=== PATIENT | male | born 1975 | race Caucasian/White ===

== ENCOUNTER → 2017-07-01 10:43 | Outpatient (CLI) | payer OTHER, SELFPAY ==
[2017-07-01 12:32] LABS: Uric Acid 7.4 mg/dL (3.5-7.2)
== END ==
PROVIDERS: Family Provider Family Medicine; PCP Family Medicine; Visit Provider Family Medicine
DX: M00.9 Pyogenic arthritis, unspecified (principal)
CPT/HCPCS: 36415; 84550

== ENCOUNTER → 2017-11-05 13:34 | Outpatient (CLI) | payer OTHER, SELFPAY ==
[2017-11-05 15:44] LABS: Uric Acid 5.3 mg/dL (3.5-7.2)
== END ==
PROVIDERS: Family Provider Family Medicine; PCP Family Medicine; Visit Provider Family Medicine
DX: M1A.0710 Idiopathic chronic gout, right ankle and foot, without tophus (tophi) (principal)
CPT/HCPCS: 36415; 84550

== ENCOUNTER → 2019-12-21 10:42 | Outpatient (CLI) | payer OTHER, SELFPAY ==
[2019-12-21 13:27] LABS: Anion Gap 6 (5-15); BUN 13 mg/dL (7-18); Chloride 103 mmol/L (98-107); Cholesterol 201 mg/dL (200); EST Glomerular Filtration Rate 87 mL/min (>60); Est Glom Filt Rate - Afr Amer 106 mL/min (>60); Glucose 85 mg/dL (74-106); High Density Lipoprotein 31 mg/dL; Potassium 4.2 mmol/L (3.5-5.1); Sodium Level 138 mmol/L (136-145); Triglycerides 463 mg/dL; Uric Acid 5.8 mg/dL (3.5-7.2)
== END ==
PROVIDERS: PCP Family Medicine; Referring Provider Family Medicine; Visit Provider Family Medicine
DX: M1A.0710 Idiopathic chronic gout, right ankle and foot, without tophus (tophi) (principal); Z13.1 Encounter for screening for diabetes mellitus; Z13.220 Encounter for screening for lipoid disorders
CPT/HCPCS: 36415; 80048; 80061; 84550

== ENCOUNTER → 2020-12-20 09:42 | Outpatient (CLI) | payer OTHER, SELFPAY ==
[2020-12-20 12:04] LABS: Anion Gap 5 (5-15); BUN 14 mg/dL (7-18); BUN/Creat Ratio 13.7 RATIO (10-20); Calcium,Total 8.8 mg/dL (8.5-10.1); Chloride 108 mmol/L (98-107); Cholesterol 190 mg/dL (200); Creatinine, Serum 1.02 mg/dL (0.70-1.30); EST Glomerular Filtration Rate 85 mL/min (>60); Est Glom Filt Rate - Afr Amer 103 mL/min (>60); Glucose 91 mg/dL (74-106); High Density Lipoprotein 33 mg/dL; Potassium 4.1 mmol/L (3.5-5.1); Sodium Level 140 mmol/L (136-145); Thyroid Stim Hormone (TSH) 3.97 uIU/mL (0.358-3.74); Triglycerides 256 mg/dL; Uric Acid 6.7 mg/dL (3.5-7.2); Very Low Density Lipoprotein 51 mg/dL (5-40)
[2020-12-22 10:03] LABS: T4 Free Direct 0.81 ng/dL (0.76-1.46)
== END ==
PROVIDERS: PCP Family Medicine; Referring Provider Family Medicine; Visit Provider Family Medicine
DX: E78.5 Hyperlipidemia, unspecified (principal); Z13.1 Encounter for screening for diabetes mellitus; M1A.0710 Idiopathic chronic gout, right ankle and foot, without tophus (tophi)
CPT/HCPCS: 36415; 80048; 80061; 84439; 84443; 84550

== ENCOUNTER → 2021-12-25 | Outpatient (CLI) | payer OTHER, SELFPAY ==
[2021-12-25 12:30] LABS: Anion Gap 6 (5-15); BUN 12 mg/dL (7-18); BUN/Creat Ratio 11.4 RATIO (10-20); Calcium,Total 9.2 mg/dL (8.5-10.1); Chloride 106 mmol/L (98-107); Cholesterol 212 mg/dL (200); Creatinine, Serum 1.05 mg/dL (0.70-1.30); EST Glomerular Filtration Rate 82 mL/min (>60); Est Glom Filt Rate - Afr Amer 99 mL/min (>60); Glucose 92 mg/dL (74-106); High Density Lipoprotein 33 mg/dL; Sodium Level 141 mmol/L (136-145); T4 Free Direct 0.77 ng/dL (0.76-1.46); Thyroid Stim Hormone (TSH) 3.45 uIU/mL (0.358-3.74); Triglycerides 283 mg/dL; Very Low Density Lipoprotein 57 mg/dL (5-40)
== END | disposition home or self-care (01) ==
PROVIDERS: PCP Family Medicine; Referring Provider Family Medicine; Visit Provider Family Medicine
DX: E78.5 Hyperlipidemia, unspecified (principal); Z13.1 Encounter for screening for diabetes mellitus; E03.9 Hypothyroidism, unspecified; R53.83 Other fatigue
CPT/HCPCS: 36415; 80048; 80061; 84403; 84439; 84443

== ENCOUNTER → 2022-04-20 | Outpatient (CLI) | payer OTHER, SELFPAY ==
[2022-04-28 12:08] LABS: Testosterone, Free 4.85 ng/dL (5.00-21.00)
[2022-04-28 21:00] LABS: Testosterone, % Free 2.68 % (1.50-4.20); Testosterone, Total 181 ng/dL (264-916)
== END | disposition home or self-care (01) ==
LOC: MTLAB 09:06
PROVIDERS: PCP Family Medicine; Referring Provider Family Medicine; Visit Provider Family Medicine
DX: R79.89 Other specified abnormal findings of blood chemistry (principal)
CPT/HCPCS: 36415; 84402; 84403

== ENCOUNTER → 2022-12-24 | Outpatient (CLI) | payer OTHER, SELFPAY ==
[2022-12-24 15:05] LABS: Color, Urine Yellow (Yellow); Glucose, Dipstick Normal (Normal); Ketone-Dipstick 5 mg/dl (Negative); Leukocyte Esterase-Dipstick 25 /ul (Negative); Nitrite-Dipstick Negative (Negative); Occult Blood-Urine Negative /ul (Negative); Protein-Dipstick 30 mg/dl (Negative); Specific Gravity, Urine 1.015 (1.002-1.030); Urine Bilirubin Dipstick Negative (Negative); Urine Clarity Sl. Cloudy (Clear); Urine Urobilinogen Normal (Normal)
[2022-12-24 16:34] LABS: Anion Gap 5 (5-15); BUN 15 mg/dL (7-18); Calcium,Total 9.4 mg/dL (8.5-10.1); Chloride 106 mmol/L (98-107); Creatinine, Serum 1.15 mg/dL (0.70-1.30); EST Glomerular Filtration Rate 73 mL/min (>60); Est Glom Filt Rate - Afr Amer 88 mL/min (>60); Glucose 81 mg/dL (74-106); Potassium 3.9 mmol/L (3.5-5.1); Sodium Level 139 mmol/L (136-145); Thyroid Stim Hormone (TSH) 3.84 uIU/mL (0.358-3.74); Uric Acid 6.6 mg/dL (3.5-7.2)
== END | disposition home or self-care (01) ==
PROVIDERS: PCP Family Medicine; Referring Provider Family Medicine; Visit Provider Family Medicine
DX: E03.9 Hypothyroidism, unspecified (principal)
CPT/HCPCS: 36415; 80048; 81002; 84403; 84439; 84443; 84550